=== PATIENT | male | born 1970 | race Two or more races ===

== ENCOUNTER 2022-11-09 06:39 | Day surgery (SDC) | payer MEDICAID ==
[2022-11-09] MEDS ORDERED: Midazolam 1 MG/ML 2 ML SDV IV ONE (06:40)
[2022-11-09] MEDS ORDERED: Propofol 200 MG/20 ML SDV IV ONE (06:40)
[2022-11-09] MEDS ORDERED: Sodium Chloride 0.9% 10 ML Syringe FLUSH PRN (06:45)
[2022-11-09] MEDS ORDERED: Lactated Ringers 1,000 ML IV SCH (06:45)
[2022-11-09] MEDS ORDERED: Simethicone Drops 40 MG/0.6 ML 30 ML Bottle PO ONE (07:56)
== END 2022-11-09 09:16 | disposition home or self-care (01) ==
LOC: FB.SDS 06:39
PROVIDERS: ATTEND Surgery
DX: Z12.11 Encounter for screening for malignant neoplasm of colon (principal); K64.4 Residual hemorrhoidal skin tags; K21.9 Gastro-esophageal reflux disease without esophagitis; E05.90 Thyrotoxicosis, unspecified without thyrotoxic crisis or storm; Z79.899 Other long term (current) drug therapy
CPT/HCPCS: 00812; A9270-GY; J2250; J2704; J7120